=== PATIENT | male | born 1945 | race Caucasian/White ===

== ENCOUNTER 2018-04-02 07:30 | Inpatient (IN) ==
[2018-04-02] MEDS ORDERED: Metoprolol Tartrate 25 MG Tablet PO ONE (08:33)
[2018-04-02] MEDS ORDERED: Vancomycin Inj 1,000 MG in Sodium Chlor 0.9% Inj 250 ML IV.SIG SCH (09:00)
[2018-04-02] MEDS ORDERED: Sodium Chlor 0.9% Inj 500 ML IV.SIG SCH (09:00)
[2018-04-02] MEDS ORDERED: ceFAZolin 2 GM Premix Inj 2 GM/100 ML BAG IV.SIG ONE (09:14)
[2018-04-02 09:26] LABS: INR 1.1 Ratio; Prothrombin Time 11.4 sec (9.8-11.6)
[2018-04-02] MEDS ORDERED: ceFAZolin 2 GM/NS 100 ML IV; Q8H IV.SIG ONE ×2 (09:30)
[2018-04-02] MEDS ORDERED: SODIUM CHLOR 0.9% IV.SIG SCH (09:30)
[2018-04-02] MEDS ORDERED: TRANEXAMIC ACID IV.SIG SCH (09:30)
[2018-04-02] MEDS ORDERED: Sodium Chlor 0.9% Inj 40 ML, Bupivacaine Liposo PF 1.3% Inj 20 ML P-ARTICULR SCH ×2 (09:30)
[2018-04-02] MEDS ORDERED: Bupivacaine/Epinephrine Inj 0.25% 50 ML Vial ONE (10:08)
[2018-04-02] MEDS ORDERED: Glycopyrrolate Inj 1 MG/5 ML Syringe IV.PUSH ONE (11:48)
[2018-04-02] MEDS ORDERED: Phenylephrine/NS 1000 MCG/10ML Syringe IV.PUSH ONE (11:48)
[2018-04-02] MEDS ORDERED: Lidocaine PF 1% Inj 5 ML Syringe INFILTRATN ONE (11:48)
[2018-04-02] MEDS ORDERED: Neostigmine Inj 5 MG/5 ML Syringe IV.PUSH ONE (11:48)
[2018-04-02] MEDS ORDERED: Albumin Human 25% Inj 50 ML IV.SIG ONE (13:16)
[2018-04-02] MEDS ORDERED: Bisacodyl 10 MG Supp RECTAL PRN (13:19)
[2018-04-02] MEDS ORDERED: Morphine Inj 4 MG/ML Vial IV.PUSH PRN (13:19)
[2018-04-02] MEDS ORDERED: Temazepam 15 MG Capsule PO PRN (13:19)
[2018-04-02] MEDS ORDERED: Post-op Orders (for Pharmacy) OTHER STA (13:19)
--- NOTE | 2018-04-02 13:29 | P.OP ---
- Preoperative Diagnosis (1) Osteoarthritis of right hip - Postoperative Diagnosis (1) Osteoarthritis of right hip Date of procedure: 04/02/18 Procedure: Right total hip arthroplasty, direct anterior exposure Anesthesia: GETA Surgeon: Elfego Huizar MD Performance Consultant: Staff Operation and Findings: EBL: 800 cc INDICATION: This patient presents with significant hip pain related to severe osteoarthritis of the right hip. Despite extensive conservative care this patient continues to be painful and now presents for surgical treatment. COMPONENTS: COMPANY: [employer] CUP: [place], 60 mm, 100 series, gription surface LINER: Altrx 36 mm, neutral STEM: [place], size 15, high offset, hydroxyapatite-coated HEAD: Metal, 36 mm, +5, 07/12 taper PROCEDURE: This patient was brought to the operating room and anesthetized in the supine position and positioned on the fracture table with both legs held extended. The right hip and leg was scrubbed with alcohol followed by Hibiclens followed by ChloraPrep and draped sterilely. Antibiotics were given within routine time window and a timeout was done. A 4 inch incision was made starting 2 cm distal and 2 cm lateral to the anterior superior iliac spine. The fascia gabriela was opened longitudinally. The interval between the fascia gabriela and the rectus was opened down to the capsule of the hip joint. Retractors were positioned allowing good visualization of the capsule. This was opened longitudinally and flaps were created. Stay sutures were utilized. Exposure was excellent. The neck was cut at the proper location using fluoroscopy as a guide. The head was removed. Deep retractors were positioned allowing good visualization of the acetabulum. Acetabulum was deepened down to the floor starting with a proper size reamer and reaming up to 59 mm. A trial was utilized. Fluoroscopy was used to check position and confirmed satisfactory alignment. The rim was reamed with a 60 mm reamer and the final cup was positioned in approximately 20 of anteversion and 40-45 of abduction. Position was satisfactory. A single hole eliminator was positioned followed by the final liner. The lifting hook was utilized. The leg was dropped to the floor, maximally externally rotated and brought across the midline. Retractors were positioned. A box osteotome was utilized followed by progressive broaching to the proper stem size. Trial reduction showed excellent alignment and fit. With 60 of external rotation the leg was dropped to the floor without evidence of anterior subluxation. The wound was irrigated. The final stem was inserted and was found to be very stable. The final reduction using the final head. Stability was as previously noted. Intraoperative x-rays were taken. The wound was irrigated copiously. Hemostasis was controlled. Local anesthesia was utilized. The capsule was repaired with #2 Tycron sutures. The fascia gabriela was repaired with running 0 PDS on a loop. Subcutaneous tissue was approximated with 2-0 Vicryl and skin with running intradermal 3-0 Vicryl followed by Steri-Strips. A sterile dressing was applied. The patient was awakened and taken to the recovery room in satisfactory condition. FINDINGS: There was severe osteoarthritis of the right hip. The final solution appeared excellent. There was no complication that was appreciated.
--- NOTE | 2018-04-02 13:30 | P.DCO ---
- Physical Therapy Physical Therapy: Gait training (3 times per week for 2 weeks) Hip: Total hip, Protocol: Right Right Lower Extremity Weight Bearing: Weight bearing as tolerated - Nursing RN: 3 days/week x 2 weeks Dressing changes: Do not change dressing (Unless saturated. If saturated, daily dressing change dry) - Certification Need for Home Health services: I have seen patient Greg Mendez on 04/02/18. My clinical findings support the need for the requested home health care services because: Need for Home Health Services: Limited mobility due to disease progression Homebound Certification: I certify that my clinical findings support that this patient is homebound because: Homebound Certification: Unsteady gait/balance
--- NOTE | 2018-04-02 13:31 | XR ---
EXAM DATE: 04/02/2018 1:29 PM EDT AGE/SEX: 73 years / Male INDICATIONS: Right total hip replacement. CLINICAL DATA: This is the patient's initial encounter. Patient reports that signs and symptoms have been present for 1 day and indicates a pain score of Nonresponsive. MEDICAL/SURGICAL HISTORY: None. None. COMPARISON: No prior exams available for comparison. FINDINGS: There is a right hip prosthesis in place. There is good alignment of the prosthesis with the bony str uctures. CONCLUSION: Good position and alignment on this postoperative study. Electronically signed by: Maxi Mendieta MD 04/02/2018 1:29 PM EDT
[2018-04-02] MEDS ORDERED: fentaNYL Citrate Inj 100 MCG/2 ML Ampul ONE (14:02)
[2018-04-02] MEDS ORDERED: *morphine SULFATE 4 MG/ML PERIprocedure ONLY ONE ×2 (14:04→14:14)
[2018-04-02] MEDS: Multivitamin/Minerals Therapeutic Tablet PO SCH (22:04)
[2018-04-02] MEDS: Senna/Docusate Sodium 8.6/50 MG Tablet PO SCH (22:04)
[2018-04-02] MEDS: Metoprolol Tartrate 50 MG Tablet PO SCH (22:05)
[2018-04-03 03:48] LABS: Hematocrit 35.5 % (39.0-51.0); Hemoglobin 12.5 gm/dL (13.0-17.0)
[2018-04-03 03:58] LABS: INR 1.2 Ratio; Prothrombin Time 12.3 sec (9.8-11.6)
[2018-04-03] MEDS ORDERED: Celecoxib 200 MG Capsule PO SCH (09:00)
[2018-04-03] MEDS ORDERED: Lisinopril 5 MG Tablet PO SCH (09:00)
--- NOTE | 2018-04-03 09:28 | P.DS ---
Date of admission: 04/02/18 08:06 Primary care physician: Edmar Duran Attending physician on discharge: Elfego Huizar Anticipated date of discharge: 04/03/18 Brief History from admission: Mr. Askew is a 73 year old male with an 8-9 month history of right hip and groin pain. There was no specific injury but rather increased discomfort after the holidays. He was prescribed Celebrex by his primary care physician. He began using ice and heat on a fairly regular basis. He tried a home program of stretching exercises for several weeks without any improvement. X-rays were taken showing showing advanced arthritis of his right hip. Physical therapy was prescribed in September. That only provided mild relief. He eventually had an intra-articular injection in November with temporary relief. Treatment options were discussed. Eventually surgical treatment was recommended in the form of right total hip arthroplasty, direct anterior approach. The patient agreed and now presents for the above. DS: Medications - Discharge Medications Prescriptions: enoxaparin [Lovenox] 40 mg SUB-Q Q24H #3 ml hydrocodone-acetaminophen 1 tab PO Q4H PRN #42 tab PRN Reason: Acute Pain warfarin [Coumadin] 5 mg PO DAILY@1600 #20 tab DS: Summary Hospital Course: Surgical treatment was performed on the day of admission without complication. The patient recovered well in PACU and was transferred to the orthopedic floor. IV and oral medications were supplied. The patient was compliant with physical therapy and all precautions. After ___ days she was found to be stable and discharged to a ____. She was encouraged to continue physical therapy, to elevate the operative limb and ice it 2-3 times daily, and to pursue a high fiber diet. She was given prescriptions of [place] 7.5mg and ASA 81mg twice daily. - Time Spent with Patient Total time spent providing and/or coordinating discharge services: Greater than 30 minutes - Quality: VTE Deep Vein Thrombosis/Pulmonary Embolism Present on Admission: No Exam Vital signs: Vital Signs 04/02/18 13:48 04/02/18 14:00 04/02/18 14:15 Temperature 97.6 F Pulse Rate 89 84 81 Respiratory Rate 21 21 18 Blood Pressure 98/55 L 100/54 L 114/56 L Pulse Oximetry 92 L 97 99 04/02/18 14:30 04/02/18 15:00 04/02/18 15:40 Temperature 98.3 F Pulse Rate 81 84 80 Respiratory Rate 15 15 19 Blood Pressure 99/55 L 100/59 L 99/65 L Pulse Oximetry 97 99 97 04/02/18 19:18 04/02/18 20:00 04/03/18 00:00 Temperature 98 F 98.0 F 97.8 F Pulse Rate 16 L 82 92 H Respiratory Rate 16 18 17 Blood Pressure 113/62 125/64 96/58 L Pulse Oximetry 99 99 96 04/03/18 04:00 Temperature 99.5 F Pulse Rate 84 Respiratory Rate 17 Blood Pressure 122/60 Pulse Oximetry 95 Intake & Output 04/02/18 04/03/18 04/03/18 18:59 06:59 18:59 Intake Total 3241.65 / 3241.65 1020 / 1020 100 / 100 Output Total 800 / 800 Balance 2441.65 / 2441.65 1020 / 1020 100 / 100 Weight 116.5 kg Intake: IV 1641.65 / 1641.65 1020 / 1020 100 / 100 LR 1000 mL Inj 1,000 ML @ 80 80 / 80 920 / 920 mls/hr IV.CONT .[id number] [facility] Rx# :[id number] LR 1000 mL Inj 1,000 ML @ 30 1000 / 1000 mls/hr IV.SIG .Q24H [facility] Rx#: [id number] Cyklokapron Inj 1,165 MG In NS 111.65 / 111.65 Inj 100 ML @ 200 mls/hr IV.SIG ONCE [facility] Rx#:[id number] Vancomycin Inj 1,000 MG In NS 250 / 250 Inj 250 ML @ 250 mls/hr IV.SIG [employer] [facility] Rx#:[id number] Ancef 2 GM Premix Inj 2 gm In 100 / 100 100 ml @ 0 mls/hr IV.SIG .STK- [facility] Rx#:[id number] Ancef Inj 1,000 MG In NS Inj 100 / 100 100 / 100 100 / 100 100 ML @ 200 mls/hr IV.SIG Q6H [facility] Rx#:[id number] Oral 50 / 50 Anesthesia Amount 1550 / 1550 Output: Urine 0 / 0 Estimated Blood Loss 800 / 800 Other: Date of Last Bowel Movement 04/02/18 Weight On Admission 116.5 kg Results Labs on day of discharge: Labs from last 24 hours 04/03/18 04/03/18 04/02/18 03:07 03:07 09:08 Hgb 12.5 L Hct 35.5 L PT 12.3 H 11.4 INR 1.2 1.1 Blood Type Antibody Screen MTS Gel Crossmatch 04/02/18 09:04 Hgb Hct PT INR Blood Type O Positive Antibody Screen Negative MTS Gel Crossmatch See Detail - Impressions ITS Impressions Hip X-Ray 04/02/18 00:00 CONCLUSION: Good position and alignment on this postoperative study. Discharge Plan - Discharge Disposition Patient Disposition: W/Home Health Service - Discharge Condition Condition: Good - Discharge Order Discharge Orders: Discharge Order (Routine); Ordered 04/03/18 Ordered By: Elfego Huizar - Discharge Details Anticipated Discharge Date: 04/03/18 - Physicians Team Attending Provider: Elfego Huizar - Rxs /Orders / Referrals /Forms Prescriptions: New enoxaparin [Lovenox] 40 mg/0.4 mL Syringe 40 mg Sub-Q Q24H Qty: 3 RF: 0 hydrocodone-acetaminophen 7.5-325 mg Tablet 1 tab PO Q4H PRN (Reason: Acute Pain) Qty: 42 RF: 0 warfarin [Coumadin] 5 mg Tablet 5 mg PO DAILY@1600 Qty: 20 RF: 0 Continue acetaminophen [Tylenol 8 Hour] 650 mg Tablet Extended Release 1,300 mg PO BID PRN (Reason: Pain) B-complex with vitamin C [Super B Complex-Vitamin C] Tablet 1 tab PO DAILY C,E,zinc,copper [id number] [Ocuvite Adult 50 Plus] 250-5-1 mg Capsule 1 cap PO DAILY celecoxib [Celebrex] 200 mg Capsule 200 mg PO DAILY cholecalciferol (vitamin D3) [Vitamin D3] 5,000 unit Tablet 10,000 unit PO BID coenzyme Q10 [Ultra CoQ10] 75 mg Capsule 100 mg PO DAILY colesevelam 625 mg Tablet 600 mg PO DAILY glucosamine-chondroitin 750-600 mg Tablet 2 tab PO BID lisinopril 2.5 mg Tablet 2.5 mg PO DAILY metoprolol tartrate 100 mg Tablet 50 mg PO BID turmeric-turmeric root extract 450-50 mg Capsule 2 cap PO BID warfarin 5 mg Tablet 5 mg PO DAILY Ambulatory Orders / Order Sets / DME: Walker With Front Wheels (1 each) (Routine) Location: Determined by Patient Ordered By: Elfego Huizar Referrals: Edmar Duran [Other] - See Instructions - Discharge Instructions Patient Printed Instructions: Hydrocodone/Acetaminophen (By mouth), Warfarin ( By mouth), Enoxaparin (By injection), How to Choose and Use a Walker (GEN), Deep Vein Thrombosis (ED), Fall Prevention (ED), Total Hip Replacement (GEN), Hip Abduction Pillow (DC) - Post Discharge Care Plan Care Plan Goals: Discharge Care Plan Goals for RIGHT Total Hip Replacement You had a right hip replacement surgery. This means your natural hip was replaced with an artificial joint (prosthesis). You may be recovering at home or in a rehabilitation facility. Either way, you must take care of your new hip. Here are some goals to help you heal well. Directions to Meet your Goals: 1. Activity & Exercises: * Take pain medicine as directed by your doctor. * Dont drive until your doctor says its OK. And never drive while taking opioid pain medicine. * Wear the support stockings you were given in the hospital as directed by your surgeon. * Dont sit for more than 30 to 45 minutes at one time. * Dont lean forward while sitting. * Dont cross your legs. * Keep your feet flat on the floor. Dont turn your foot or leg inward. This stresses your hip joint. * Use an elevated toilet seat for 6 weeks after surgery. * Nap if you are tired, but dont stay in bed all day. * Sit on a firm cushion when you ride in a car and avoid sitting too low. Try not to bend your hip too much when getting in and out of the car. 2. Prevent Falls/Injury: * Follow your doctors orders regarding how much weight to put on the affected leg. * Dont bend at the hip when you bend over. Don't bend at the waist to put on socks and shoes. And avoid picking up items from the floor. * Use a cane, crutches, a walker, or handrails until your balance, flexibility, and strength improve. And remember to ask for help from others when you need it. * Free up your hands so that you can use them to keep balance. Use a freedom pack , apron, or pockets to carry things. * Arrange your household to keep the items you need handy. Keep everything else out of the way. * Remove items that may cause you to fall, such as throw rugs and electrical cords. * Use nonslip bath mats, grab bars, an elevated toilet seat, and a shower chair in your bathroom * Sit on a shower stool or chair when you shower to keep from falling. 3. Precautions: * Prevent infection. Any infection will need to be treated immediately. Call your doctor right away if you think you might have an infection. * Tell your dentist that you have an artificial joint and take antibiotics as prescribed before any dental work. * Tell all your healthcare providers about your artificial joint before any medical procedure. * Maintain a healthy weight. Get help to lose any extra pounds. Added body weight puts stress on the joints. 4. Incision Care: * Prevent infection by washing your hands often. If an infection occurs, it will need to be treated right away. * Call your doctor right away if you think you may have an infection. Symptoms include a fever or an incision that leaks white, green, or yellow fluid. * Don't soak your incision in water until your doctor says its OK. This means no hot tubs, bathtubs, or swimming pools. * Follow your doctor's instructions for changing the dressing. * Dont rub the incision, or apply creams or lotions to it. * If you notice any redness or drainage around the bandage site, contact your surgeon's office immediately. 5. Follow-Up: Do Not miss your follow-up appointment. Keep up with all your appointments and yearly check ups When to call your doctor: Call your doctor right away if you have: Hip pain gets worse Pain or swelling in your calf or leg not related to your incision Tenderness or redness in your calf Fever of 100.4F (38C) or higher, or as directed by your healthcare provider Shaking chills Swelling or redness at the incision site gets worse Fluid draining from the incision Call 911: Call 911 right away if you have: Chest pain Shortness of breath Any pain or tenderness in your calf
[2018-04-03] MEDS: Senna/Docusate Sodium 8.6/50 MG Tablet PO SCH (09:55)
[2018-04-03] MEDS: Metoprolol Tartrate 50 MG Tablet PO SCH (09:55)
[2018-04-03] MEDS: Multivitamin/Minerals Therapeutic Tablet PO SCH (09:55)
[2018-04-03 09:56] VITALS: RESP 16
--- NOTE | 2018-04-03 12:57 | P.PNOP ---
Subjective Interval history: Doing ok today. Some thigh pain but tolerable with medications. He had some discomfort right heel but that has improved. No other concerns. No CP or SOB. Questions about surgery. Physical Exam Vital signs: Vital Signs 04/02/18 13:48 04/02/18 14:00 04/02/18 14:15 Temperature 97.6 F Pulse Rate 89 84 81 Respiratory Rate 21 21 18 Blood Pressure 98/55 L 100/54 L 114/56 L Pulse Oximetry 92 L 97 99 04/02/18 14:30 04/02/18 15:00 04/02/18 15:40 Temperature 98.3 F Pulse Rate 81 84 80 Respiratory Rate 15 15 19 Blood Pressure 99/55 L 100/59 L 99/65 L Pulse Oximetry 97 99 97 04/02/18 19:18 04/02/18 20:00 04/03/18 00:00 Temperature 98 F 98.0 F 97.8 F Pulse Rate 16 L 82 92 H Respiratory Rate 16 18 17 Blood Pressure 113/62 125/64 96/58 L Pulse Oximetry 99 99 96 04/03/18 04:00 04/03/18 08:00 Temperature 99.5 F 98.1 F Pulse Rate 84 98 H Respiratory Rate 17 16 Blood Pressure 122/60 128/70 Pulse Oximetry 95 94 L Intake & Output 04/02/18 04/03/18 04/03/18 18:59 06:59 18:59 Intake Total 3241.65 / 3241.65 1020 / 1020 100 / 100 Output Total 800 / 800 Balance 2441.65 / 2441.65 1020 / 1020 100 / 100 Weight 116.5 kg Intake: IV 1641.65 / 1641.65 1020 / 1020 100 / 100 LR 1000 mL Inj 1,000 ML @ 80 80 / 80 920 / 920 mls/hr IV.CONT .[id number] [facility] Rx# :[id number] LR 1000 mL Inj 1,000 ML @ 30 1000 / 1000 mls/hr IV.SIG .Q24H [facility] Rx#: [id number] Cyklokapron Inj 1,165 MG In NS 111.65 / 111.65 Inj 100 ML @ 200 mls/hr IV.SIG ONCE [facility] Rx#:[id number] Vancomycin Inj 1,000 MG In NS 250 / 250 Inj 250 ML @ 250 mls/hr IV.SIG [employer] [facility] Rx#:[id number] Ancef 2 GM Premix Inj 2 gm In 100 / 100 100 ml @ 0 mls/hr IV.SIG .STK- [facility] Rx#:[id number] Ancef Inj 1,000 MG In NS Inj 100 / 100 100 / 100 100 / 100 100 ML @ 200 mls/hr IV.SIG Q6H [facility] Rx#:[id number] Oral 50 / 50 Anesthesia Amount 1550 / 1550 Output: Urine 0 / 0 Estimated Blood Loss 800 / 800 Other: Date of Last Bowel Movement 04/02/18 Weight On Admission 116.5 kg Narrative: With his significant other NAD In chair RLE Hip dressing c/d/i, mild swelling, no erythema +motor AT distal, +sens, +nvi Neg homans, calf supple - Constitutional no acute distress Results - Labs CBC & Chem 7: 04/03/18 03:07 Laboratory Results - last 24 hr 04/03/18 04/03/18 03:07 03:07 Hgb 12.5 L Hct 35.5 L PT 12.3 H INR 1.2 - Imaging Impressions Hip X-Ray 04/02/18 00:00 CONCLUSION: Good position and alignment on this postoperative study. - Procedures Right total hip arthroplasty, direct anterior approach Assessment and Plan - Ortho Post Op Day # 1 - Assessment and Plan pod#1 s/p R [id number], anterior Doing well for pod#1. Pain controlled with PO meds. Some right heel pain, now resolved. Ok to d/c home w [facility] today after PT. Continue home INR qmon and thurs. Pt has his own INR device. Goal 1.8-2.0. Lovenox for bridging. Hold dressing changes unless saturated. PT - WBAT RLE. Anterior SANJEEV protocol. Follow up in 2 weeks as scheduled. DME written.
[2018-04-03] MEDS ORDERED: Enoxaparin Inj 40 MG/0.4 ML Syringe SQ SCH (13:00)
[2018-04-03 15:11] VITALS: BP 128/59; PULSE 96; TEMP 98.2; O2SAT 93
== END 2018-04-03 15:49 | disposition home health service (06) ==
LOC: HSDI 08:06 → N06 15:55
PROVIDERS: ADMIT Orthopaedic Surgery Orthopaedic Surgery of the Spine; ATTEND Orthopaedic Surgery Orthopaedic Surgery of the Spine